=== PATIENT | male | born 1950 | race Two or more races ===

== ENCOUNTER 2025-09-09 13:32 | Inpatient (IN) | payer MEDICARE ==
[~2025-09-09] VITALS: Ht 185.4 cm; Wt 71.7 kg
[2025-09-09 20:00] VITALS: BP 141/84; PULSE 69; RESP 19; TEMP 98.8; O2SAT 96
[2025-09-09] MEDS ORDERED: MELATONIN 5 MG TABLET PO PRN (20:45)
[2025-09-09] MEDS ORDERED: ACETAMINOPHEN 325 MG TABLET PO PRN (20:45)
[2025-09-09] MEDS: SENNOSIDES 8.6 MG TABLET PO SCH (21:00)
[2025-09-09] MEDS: ATORVASTATIN CALCIUM 40 MG TABLET PO SCH (21:00)
[2025-09-09] MEDS: DOCUSATE SODIUM 100 MG CAPSULE PO SCH (21:00)
[2025-09-09] MEDS: 0.9% SODIUM CHLORIDE 10 ML SYRINGE IVP SCH (21:30)
[2025-09-09 22:00] VITALS: BP 132/85; PULSE 65
[2025-09-09] MEDS: SODIUM CHLORIDE 1 GM TABLET PO SCH (22:06)
[2025-09-09] MEDS: METOPROLOL TARTRATE 25 MG TABLET PO SCH (22:07)
[2025-09-09] MEDS: APIXABAN 5 MG TABLET PO SCH (22:07)
[2025-09-09] MEDS: ETHYL ALCOHOL 62% ANTISEPTIC NASAL SANITIZER 0.6 ML AMPUL NASAL SCH (22:07)
[2025-09-09] MEDS: CHLORHEXIDINE GLUCONATE 2% TOWELETTE [2'S/6'S] TP ONE (22:08)
[2025-09-09 22:21] LABS: APPEARANCE,URINE HAZY (CLEAR); GLUCOSE, URINE (UA) NEGATIVE (NEGATIVE); LEUKOCYTE ESTERASE ,URINE NEGATIVE (NEGATIVE); NITRATE,URINE NEGATIVE (NEGATIVE); OCCULT BLOOD,URINE LARGE (NEGATIVE); SPECIFIC GRAVITIY, URINE 1.009 (1.003-1.030)
[2025-09-09 23:42] LABS: SQUAMOUS EPITHELIAL CELL,UR Few /LPF (None Seen)
[2025-09-10 08:30] VITALS: BP 155/90; PULSE 73; RESP 18; TEMP 98.8; O2SAT 95
[2025-09-10] MEDS: ASPIRIN 81 MG CHEWABLE TABLET PO SCH (09:05)
[2025-09-10] MEDS: MULTIVITAMINS WITH MINERALS, THERAPEUTIC TABLET PO SCH (09:05)
[2025-09-10] MEDS: UDCUP PO SCH (09:06)
[2025-09-10] MEDS: ATOVAQUONE 750 MG/5 ML PO SCH (09:06)
[2025-09-10 10:17] LABS: PLATELET COUNT (AUTO) 178 K/uL (150-450); RED BLOOD CELL COUNT(AUTO) 2.55 MIL/uL (4.50-5.90); RED CELL DISTRIBUTION WIDTH 19.6 % (11.5-14.5); WHITE BLOOD COUNT (AUTO) 5.9 K/uL (4.5-11.0)
[2025-09-10 10:44] LABS: ASPARTATE AMINOTRANSFERASE 82 U/L (15-37); CALCIUM, TOTAL 8.0 mg/dL (8.8-10.5); CREATININE 1.11 mg/dL (0.60-1.30); GLOMERULAR FILTR. RATE CALC > 60 mL/min (>60); GLUCOSE,RANDOM 173 mg/dL (70-110); SODIUM SERUM 136 mmol/L (136-145); TOTAL PROTEIN, SERUM 5.5 g/dL (6.4-8.2); UREA NITROGEN, BLOOD 20 mg/dL (7-18)
[2025-09-10] MEDS: POTASSIUM CHLORIDE 20 MEQ ER TABLET PO ONE (13:54)
[2025-09-10] MEDS: PANTOPRAZOLE SODIUM 40 MG DR TABLET PO SCH (13:57)
[2025-09-10] MEDS ORDERED: SODIUM CHLORIDE 0.9% IRRIG BTL 1,000 ML IRRIG ONE (17:08)
[2025-09-10 20:30] VITALS: BP 150/70; PULSE 70; RESP 20; TEMP 98.2; O2SAT 95; O2SAT 97
[2025-09-10] MEDS: CHLORHEXIDINE GLUCONATE 2% TOWELETTE [2'S/6'S] TP SCH (21:27)
[2025-09-11 09:18] VITALS: BP 143/83; PULSE 63; RESP 18; TEMP 97.9; O2SAT 98
[2025-09-11 10:45] LABS: CALCIUM, TOTAL 7.8 mg/dL (8.8-10.5); CREATININE 1.04 mg/dL (0.60-1.30); GLOMERULAR FILTR. RATE CALC > 60 mL/min (>60); GLUCOSE,RANDOM 143 mg/dL (70-110); SODIUM SERUM 136 mmol/L (136-145); UREA NITROGEN, BLOOD 19 mg/dL (7-18)
[2025-09-11] MEDS: APIXABAN 5 MG TABLET PO ONE (11:48)
[2025-09-11 17:51] LABS: GLUCOMETER DEV NAME(LOC) 2WR.2C; GLUCOSE,POINT OF CARE 147 MG/DL (70-110)
[2025-09-11 20:00] VITALS: BP 110/64; PULSE 68; RESP 18; TEMP 98.4; O2SAT 98
[2025-09-11] MEDS: APIXABAN 5 MG TABLET PO SCH (20:26)
[2025-09-11] MEDS: INFLUENZA VIRUS VACCINE TVS (6MO+) 2025-26/PF 45 MCG/0.5 ML SYRINGE IM. ONE (20:30)
[2025-09-12] MEDS ORDERED: APIX5TAB PO (02:09)
[2025-09-12] MEDS ORDERED: SODI100067 PO (02:09)
[2025-09-12] MEDS ORDERED: AMLO-257 PO (02:09)
[2025-09-12] MEDS ORDERED: METO25 PO (02:09)
[2025-09-12] MEDS ORDERED: LEVE-71 PO (02:09)
[2025-09-12] MEDS ORDERED: ATOR40TA28 PO (02:09)
[2025-09-12] MEDS ORDERED: ATOV5L PO (02:09)
[2025-09-12] MEDS ORDERED: DOCU-385 PO (02:09)
[2025-09-12] MEDS ORDERED: PANT-31 PO (02:09)
[2025-09-12] MEDS ORDERED: DEXA1 PO (02:09)
[2025-09-12] MEDS ORDERED: MULT-1303 PO (02:09)
[2025-09-12] MEDS ORDERED: SENN-376 PO (02:09)
[2025-09-12] MEDS ORDERED: ASPI-1450 PO (02:09)
[2025-09-12 06:56] LABS: GLUCOMETER DEV NAME(LOC) 2WR.2C; GLUCOSE,POINT OF CARE 105 MG/DL (70-110)
[2025-09-12 08:00] VITALS: BP 135/65; PULSE 55; RESP 18; TEMP 98.4; O2SAT 100
[2025-09-12] MEDS: ASPIRIN 81 MG CHEWABLE TABLET PO SCH (08:36)
[2025-09-12] MEDS: SODIUM CHLORIDE 1 GM TABLET PO SCH (20:18)
[2025-09-12 20:26] VITALS: BP 110/65; PULSE 69; RESP 16; TEMP 98.2; O2SAT 96
[2025-09-12 21:00] VITALS: O2SAT 96
[2025-09-13 01:11] LABS: GLUCOMETER DEV NAME(LOC) 2WR.2C; GLUCOSE,POINT OF CARE 163 MG/DL (70-110)
[2025-09-13 07:42] LABS: PLATELET COUNT (AUTO) 220 K/uL (150-450); RED BLOOD CELL COUNT(AUTO) 2.27 MIL/uL (4.50-5.90); RED CELL DISTRIBUTION WIDTH 18.7 % (11.5-14.5); WHITE BLOOD COUNT (AUTO) 5.3 K/uL (4.5-11.0)
[2025-09-13 07:57] LABS: ASPARTATE AMINOTRANSFERASE 31 U/L (15-37); CALCIUM, TOTAL 7.8 mg/dL (8.8-10.5); CREATININE 1.07 mg/dL (0.60-1.30); GLOMERULAR FILTR. RATE CALC > 60 mL/min (>60); GLUCOSE,RANDOM 93 mg/dL (70-110); SODIUM SERUM 139 mmol/L (136-145); TOTAL PROTEIN, SERUM 5.2 g/dL (6.4-8.2); UREA NITROGEN, BLOOD 17 mg/dL (7-18)
[2025-09-13 07:59] LABS: RBC MORPHOLOGY COMMENT ABNORMAL RBC MORPH
[2025-09-13 08:00] VITALS: BP 123/72; PULSE 62; RESP 17; TEMP 98.8; O2SAT 95
[2025-09-13 20:02] VITALS: BP 112/67; PULSE 75; RESP 18; TEMP 98.6; O2SAT 98
[2025-09-13 21:20] LABS: GLUCOMETER DEV NAME(LOC) 2WR.1D; GLUCOSE,POINT OF CARE 119 MG/DL (70-110)
[2025-09-13 22:24] VITALS: O2SAT 98
[2025-09-14 08:00] VITALS: BP 138/64; PULSE 74; RESP 19; TEMP 98.4; O2SAT 97
[2025-09-14] MEDS: SODIUM CHLORIDE 1 GM TABLET PO SCH (08:09)
[2025-09-14] MEDS: ACYCLOVIR 5% 15 GM OINTMENT TP SCH (16:00)
[2025-09-14 20:02] VITALS: BP 125/66; PULSE 74; RESP 18; TEMP 98.6; O2SAT 97
[2025-09-14] MEDS: TAMSULOSIN HCL 0.4 MG CAPSULE PO SCH (20:39)
[2025-09-14 22:01] LABS: GLUCOMETER DEV NAME(LOC) 2WR.1D; GLUCOSE,POINT OF CARE 145 MG/DL (70-110)
[2025-09-15 07:03] LABS: PLATELET COUNT (AUTO) 267 K/uL (150-450); RED BLOOD CELL COUNT(AUTO) 2.19 MIL/uL (4.50-5.90); RED CELL DISTRIBUTION WIDTH 17.6 % (11.5-14.5); WHITE BLOOD COUNT (AUTO) 5.1 K/uL (4.5-11.0)
[2025-09-15 07:11] LABS: CALCIUM, TOTAL 7.7 mg/dL (8.8-10.5); CREATININE 1.00 mg/dL (0.60-1.30); GLOMERULAR FILTR. RATE CALC > 60 mL/min (>60); GLUCOSE,RANDOM 98 mg/dL (70-110); SODIUM SERUM 138 mmol/L (136-145); UREA NITROGEN, BLOOD 21 mg/dL (7-18)
[2025-09-15 08:00] VITALS: BP 123/67; PULSE 66; RESP 18; TEMP 98.1; O2SAT 96
[2025-09-15 09:19] LABS: RBC MORPHOLOGY COMMENT ABNORMAL RBC MORPH
[2025-09-15] MEDS: FERROUS SULFATE 325 MG EC TABLET PO SCH (16:18)
[2025-09-15 21:19] VITALS: BP 128/70; PULSE 75; RESP 18; TEMP 98.2; O2SAT 97
[2025-09-15 21:21] VITALS: O2SAT 97
[2025-09-16 05:50] LABS: GLUCOMETER DEV NAME(LOC) 2WR.2C; GLUCOSE,POINT OF CARE 148 MG/DL (70-110)
[2025-09-16 08:00] VITALS: BP 146/81; PULSE 72; RESP 18; TEMP 97.9; O2SAT 97
[2025-09-16] MEDS: EPOETIN ALFA 10,000 UNITS/ML VIAL SQ SCH (08:30)
[2025-09-16 19:46] VITALS: BP 135/67; PULSE 79; RESP 18; TEMP 98.1; O2SAT 98
[2025-09-16 20:19] VITALS: O2SAT 98
[2025-09-16] MEDS ORDERED: APIXABAN 5 MG TABLET PO SCH (21:00)
[2025-09-16 21:11] LABS: GLUCOMETER DEV NAME(LOC) 2WR.2C; GLUCOSE,POINT OF CARE 131 MG/DL (70-110)
[2025-09-17 06:44] LABS: PLATELET COUNT (AUTO) 319 K/uL (150-450); RED BLOOD CELL COUNT(AUTO) 2.37 MIL/uL (4.50-5.90); RED CELL DISTRIBUTION WIDTH 16.8 % (11.5-14.5); WHITE BLOOD COUNT (AUTO) 5.3 K/uL (4.5-11.0)
[2025-09-17 08:00] VITALS: BP 124/76; PULSE 69; RESP 18; TEMP 98.1; O2SAT 97
[2025-09-17 08:19] LABS: RBC MORPHOLOGY COMMENT ABNORMAL RBC MORPH
[2025-09-17] MEDS ORDERED: CARBOXYMETHYLCELLULOSE SODIUM 0.4 ML OPHTHALMIC SOLUTION [PF] OU SCH (12:00)
[2025-09-17] MEDS: CARBOXYMETHYLCELLULOSE SODIUM 0.4 ML OPHTHALMIC SOLUTION [PF] OU PRN (12:10)
[2025-09-17 20:01] VITALS: BP 111/58; PULSE 71; RESP 18; TEMP 98.8; O2SAT 98
[2025-09-17 21:30] LABS: GLUCOMETER DEV NAME(LOC) 2WR.2C; GLUCOSE,POINT OF CARE 174 MG/DL (70-110)
[2025-09-17 22:07] VITALS: O2SAT 98
[2025-09-18] MEDS ORDERED: SODI100067 PO (03:10)
[2025-09-18] MEDS ORDERED: ACYC15OI8 TP (03:10)
[2025-09-18] MEDS ORDERED: FERR325T27 PO (03:10)
[2025-09-18] MEDS ORDERED: TAMS0.4C94 PO (03:10)
[2025-09-18] MEDS ORDERED: CARB50DR OU (03:10)
[2025-09-18 08:00] VITALS: BP 141/72; PULSE 67; RESP 18; TEMP 98.2; O2SAT 97
[2025-09-18 20:02] VITALS: BP 103/49; PULSE 72; RESP 18; TEMP 98.2; O2SAT 95
[2025-09-18 20:30] LABS: GLUCOMETER DEV NAME(LOC) 2WR.1D; GLUCOSE,POINT OF CARE 205 MG/DL (70-110)
[2025-09-19 05:45] VITALS: O2SAT 95
[2025-09-19 08:00] VITALS: BP 141/70; PULSE 60; RESP 18; TEMP 98.1; O2SAT 98
[2025-09-19] MEDS ORDERED: DEXA2 PO (10:20)
[2025-09-19] MEDS ORDERED: AMLO-257 PO (10:20)
[2025-09-19] MEDS ORDERED: PANT-31 PO (10:20)
[2025-09-19] MEDS ORDERED: ATOR40TA71 PO (10:20)
[2025-09-19] MEDS ORDERED: TAMS0.4C94 PO (10:20)
[2025-09-19] MEDS ORDERED: ATOV5L PO (10:20)
[2025-09-19] MEDS ORDERED: ASPI-1450 PO (10:20)
[2025-09-19] MEDS ORDERED: LEVE-71 PO (10:20)
[2025-09-19] MEDS ORDERED: APIX5TAB PO (10:22)
== END 2025-09-19 14:10 | disposition home health service (06) | DRG 57 ==
LOC: 2WR 19:05
PROVIDERS: ADMIT Physical Medicine & Rehabilitation; ATTEND Physical Medicine & Rehabilitation
DX: I69.154 Hemiplegia and hemiparesis following nontraumatic intracerebral hemorrhage affecting left non-dominant side (principal); C83.390 Primary central nervous system lymphoma; I82.401 Acute embolism and thrombosis of unspecified deep veins of right lower extremity; E22.2 Syndrome of inappropriate secretion of antidiuretic hormone; D68.59 Other primary thrombophilia; R13.10 Dysphagia, unspecified; I69.192 Facial weakness following nontraumatic intracerebral hemorrhage; N17.9 Acute kidney failure, unspecified; Z79.01 Long term (current) use of anticoagulants; I10 Essential (primary) hypertension; D64.9 Anemia, unspecified; F32.A Depression, unspecified; Z95.828 Presence of other vascular implants and grafts; R41.3 Other amnesia; F91.9 Conduct disorder, unspecified; E87.6 Hypokalemia; I44.0 Atrioventricular block, first degree; R29.810 Facial weakness; Z74.09 Other reduced mobility; E87.70 Fluid overload, unspecified; R33.9 Retention of urine, unspecified; R31.9 Hematuria, unspecified; R00.1 Bradycardia, unspecified; R27.0 Ataxia, unspecified; R45.87 Impulsiveness; M10.9 Gout, unspecified; Z79.52 Long term (current) use of systemic steroids; Z86.718 Personal history of other venous thrombosis and embolism; Z92.21 Personal history of antineoplastic chemotherapy; Z79.899 Other long term (current) drug therapy; Z79.82 Long term (current) use of aspirin
CPT/HCPCS: 80048; 80053; 81001; 82271; 82962; 85025; 87081; 92507; 92526; 92610; 97112; 97116; 97163; 97167; 97530; 97535; 99366; J0885; J8540